=== PATIENT | female | born 2000 | race Two or more races ===

== ENCOUNTER 2024-03-30 07:17 | Emergency (ER) | payer OTHER | END 2024-03-30 08:28 | disposition left against medical advice (07) | LOC: ER 07:26 | DX: N39.0 Urinary tract infection, site not specified (principal); Z53.21 Procedure and treatment not carried out due to patient leaving prior to being seen by health care provider ==

== ENCOUNTER 2024-03-31 13:32 | Emergency (ER) | payer OTHER | END 2024-03-31 14:41 | disposition left against medical advice (07) | LOC: ER 14:10 | DX: R10.9 Unspecified abdominal pain (principal); Z53.21 Procedure and treatment not carried out due to patient leaving prior to being seen by health care provider ==